=== PATIENT | female | born 1980 | race Caucasian/White ===

== ENCOUNTER → 2021-06-09 | Outpatient (CLI) | payer BC ==
[~2021-06-09] MED LIST: ALPR0.5T PO; NORG1TAB70 PO
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
== END ==
LOC: RAD 14:11
PROVIDERS: ATTEND Physician Assistant Medical
DX: M79.642 Pain in left hand (principal)
CPT/HCPCS: 73130

== ENCOUNTER → 2021-06-27 | Outpatient (CLI) | payer BC ==
--- NOTE | 2021-06-27 15:58 | RAD ---
INDICATION: 41 years of age asymptomatic female patient presents for screening mammography. No person al or family history of breast cancer. TECHNIQUE: Full field craniocaudal and mediolateral oblique images of both breasts were obtained usi ng digital technique with tomosynthesis and also analyzed with computer-aided detection software. COMPARISON: Baseline mammogram . BREAST COMPOSITION: Category C: The breast tissue is heterogeneously dense, which could obscure detec tion of small masses. FINDINGS: Right breast: Asymmetry in the central portion of the breast, 4.5 cm deep to the nipple appreciated o n the CC projection. There is a focal asymmetry at the upper inner breast 1:00 position, further post erior depth, 7 cm deep to the nipple. There is a nodular parenchymal pattern. No suspicious calcifica tions or architectural distortion. Left breast: There is a nodular parenchymal pattern. 6 mm focal asymmetry versus partially obscured m ass at the 6:00 position, 3 cm deep to the nipple. No suspicious calcifications or architectural dist ortion. Asymmetry in the medial breast, 10 cm deep to the nipple appreciated on the CC projection. Th is is no definite correlate on the MLO projection. The visualized axillae are unremarkable. IMPRESSION: 1. Asymmetry in the central portion of the right breast, middle depth appreciated on the CC projectio n. Additional focal asymmetry in the upper inner breast at the 1:00 position, further posterior depth . Additional evaluation with diagnostic right breast mammogram with spot compression. Additional eval uation with ultrasound, if indicated. 2. 6 mm focal asymmetry versus partially obscured mass in the 6:00 position, 3 cm deep to the nipple. Further evaluation with diagnostic left breast mammogram with spot compression and possibly follow-u p with targeted ultrasound. 3. Asymmetry in the medial left breast, posterior depth additional evaluation with diagnostic left br east mammogram with spot compression and possibly followed with left breast ultrasound. RECOMMENDATION: The patient will be contacted to return for additional imaging and a supplemental rep ort will follow. BIRADS 0: INCOMPLETE - NEED ADDITIONAL IMAGING EVALUATION AND/OR PRIOR MAMMOGRAMS FOR COMPARISON. This study was interpreted with the benefit of Computerized Aided Detection (CAD). ?Your patient's mammogram demonstrates that she has dense breast tissue (breast density category C or D), which could hide abnormalities, and if she has other risk factors for breast cancer that have be en identified, she might benefit from supplemental screening tests that may be suggested by you as he r ordering physician. Dense breast tissue, in and of itself, is a relatively common condition. Theref ore, this information is not provided to cause undue concern, but rather to raise your awareness and to promote discussion with your patient regarding the presence of other risk factors, in addition to dense breast tissue. Your patient's mammography results will be sent to her. Patient information is entered into the reminder system with a target due date for the next screening mammogram. Mammography is the most sensitive method for finding small breast cancers, but it does not detect the m all and is not a substitute for careful clinical examination. A negative mammogram does not negate a clinically suspicious finding and should not result in delay in biopsying a clinically suspicious a bnormality. "Our facility is accredited by the [employer] Mammography Program." Electronically signed by: Gregorio Hester DO (06/27/2021 3:56 PM) [id number]
== END ==
LOC: MAMMO 14:45
PROVIDERS: ATTEND Physician Assistant Medical
DX: Z12.31 Encounter for screening mammogram for malignant neoplasm of breast (principal); N64.89 Other specified disorders of breast
CPT/HCPCS: 77063; 77067